=== PATIENT | female | born 1970 | race Caucasian/White ===

== ENCOUNTER 2019-07-24 16:01 | Emergency (ER) | payer BC ==
[~2019-07-24] VITALS: Ht 170.2 cm; Wt 81.6 kg
--- NOTE | 2019-07-24 16:39 | RAD ---
Three-view right ankle dated 07/24/2019. No comparison available. Clinical data indication: Pain after fall. FINDINGS:. 3 views the right ankle show an oblique fracture of the distal one third fibular shaft, minimally displaced. The distal tibia is intact. Talar dome is intact. There is overlying soft tissue swelling. IMPRESSION: Mildly displaced fracture of the lateral malleolus. Electronically signed by: Vignesh Cuevas MD (07/24/2019 4:37 PM) [facility]
--- NOTE | 2019-07-24 16:50 | PHYS DOC ---
Past History Past Medical History: Diabetes Past Surgical History: No Surgical History Alcohol Use: None Drug Use: None Adult General Chief Complaint Chief Complaint: ANKLE PROBLEM HPI HPI 49-year-old female presents with right ankle pain. The patient was walking when she fell down to steps of her patio. She was moving furniture. She had immediate pain in the lateral ankle. She did not attempt to bear weight at that time. She went and iced it and lay down for a little while. When she attempted to put weight on the foot, she still had excruciating pain. She came to the emergency room concerned for fracture. She denies any other injuries or complaints. Review of Systems Review of Systems Constitutional: Denies fever or chills [] Eyes: Denies change in visual acuity, redness, or eye pain [] HENT: Denies nasal congestion or sore throat [] Respiratory: Denies cough or shortness of breath [] Cardiovascular: No additional information not addressed in HPI [] GI: Denies abdominal pain, nausea, vomiting, bloody stools or diarrhea [] : Denies dysuria or hematuria [] Musculoskeletal: Ankle pain[] Integument: Denies rash or skin lesions [] Neurologic: Denies headache, focal weakness or sensory changes [] Endocrine: Denies polyuria or polydipsia [] All other systems were reviewed and found to be within normal limits, except as documented in this note. Allergies Allergies Allergies Coded Allergies Type Severity Reaction Last Updated Verified Penicillins Allergy Unknown Rash 07/24/19 Yes Physical Exam Physical Exam Constitutional: Well developed, well nourished, no acute distress, non-toxic appearance. [] HENT: Normocephalic, atraumatic, bilateral external ears normal, oropharynx moist, no oral exudates, nose normal. [] Eyes: PERRLA, EOMI, conjunctiva normal, no discharge. [] Neck: Normal range of motion, no tenderness, supple, no stridor. [] Cardiovascular:Heart rate regular rhythm, no murmur [] Lungs & Thorax: Bilateral breath sounds clear to auscultation [] Abdomen: Bowel sounds normal, soft, no tenderness, no masses, no pulsatile masses. [] Skin: Warm, dry, no erythema, no rash. [] Back: No tenderness, no CVA tenderness. [] Extremities: Tenderness over the right lateral ankle, ecchymosis, significant swelling. Neurovascularly intact.[] Neurologic: Alert and oriented X 3, normal motor function, normal sensory function, no focal deficits noted. [] Psychologic: Affect normal, judgement normal, mood normal. [] Current Patient Data Vital Signs Vital Signs Date Time Temp Pulse Resp B/P (MAP) Pulse Ox O2 Delivery O2 Flow Rate FiO2 07/24/19 16:08 98.5 87 18 96 Room Air EKG EKG [] Radiology/Procedures Radiology/Procedures [] Impressions: Three-view right ankle dated 07/24/2019. No comparison available. Clinical data indication: Pain after fall. FINDINGS:. 3 views the right ankle show an oblique fracture of the distal one third fibular shaft, minimally displaced. The distal tibia is intact. Talar dome is intact. There is overlying soft tissue swelling. IMPRESSION: Mildly displaced fracture of the lateral malleolus. Electronically signed by: Santiago Cuevas MD (07/24/2019 4:37 PM) [facility] DICTATED AND SIGNED BY: SANTIAGO CUEVAS MD DATE: 07/24/19 3734 CC: SHELL AGUILAR DO; PCP,NO ~ Course & Med Decision Making Course & Med Decision Making Pertinent Labs and Imaging studies reviewed. (See chart for details) Patient's x-ray is significant for a distal fibula fracture. We'll place her in a splint and advised she follow with orthopedics. I will give her [place] 5/325 prescription for home. She is stable for discharge at this time. [] Dragon Disclaimer Dragon Disclaimer This electronic medical record was generated, in whole or in part, using a voice recognition dictation system. Departure Departure: Impression: Primary Impression: Closed fracture of left distal fibula Disposition: HOME, SELF-CARE Condition: STABLE Referrals: PCP,NO (PCP) Patient Instructions: Ankle Fracture, [id number] Additional Instructions: Please call the [facility] for follow-up. The phone number is [phone]. Scripts Hydrocodone Bit/Acetaminophen ([place] 5-325 TABLET) 1 Each Tablet 1 TAB PO PRN Q6HRS PRN for PAIN, #14 TAB 0 Refills Prov: SHELL AGUILAR DO 07/24/19 Problem Qualifiers Primary Impression: Closed fracture of left distal fibula Encounter type: initial encounter Fracture morphology: unspecified fracture morphology Qualified Codes: S82.832A - Other fracture of upper and lower end of left fibula, initial encounter for closed fracture SHELL AGUILAR DO Jul 24, 2019 16:50
[2019-07-24] MEDS ORDERED: HYDR-3165 PO (17:12)
[2019-07-24 17:55] VITALS: BP 146/105
== END 2019-07-24 17:55 | disposition home or self-care (01) ==
LOC: ER 16:01
DX: S82.831A Other fracture of upper and lower end of right fibula, initial encounter for closed fracture (principal); W10.8XXA Fall (on) (from) other stairs and steps, initial encounter; Y93.01 Activity, walking, marching and hiking; Y92.89 Other specified places as the place of occurrence of the external cause; Y99.8 Other external cause status; E11.9 Type 2 diabetes mellitus without complications
CPT/HCPCS: 29515; 73610; 99284